=== PATIENT | female | born 1985 | race Caucasian/White ===

== ENCOUNTER 2022-05-29 08:13 | Outpatient (CLI) | payer OTHER, SELFPAY ==
[2022-05-29 14:11] LABS: Alanine Aminotransferase 19 U/L (6-35); Albumin Level 4.4 g/dL (3.5-5.1); Alkaline Phosphatase 66 U/L (38-126); Aspartate Amino Transferase 45 U/L (14-36); Bilirubin,Total 0.4 mg/dL (0.2-1.3)
== END 2022-05-29 08:14 | disposition home or self-care (01) ==
LOC: ANHGOSHLAB 08:16
PROVIDERS: Visit Provider Podiatrist Foot & Ankle Surgery
DX: D35.1 Benign neoplasm of parathyroid gland (principal)
CPT/HCPCS: 36415; 80076

== ENCOUNTER 2022-06-16 08:04 | Outpatient (CLI) | payer OTHER, SELFPAY ==
[2022-06-16 14:18] LABS: Alanine Aminotransferase 17 U/L (6-35); Albumin Level 4.4 g/dL (3.5-5.1); Alkaline Phosphatase 50 U/L (38-126); Aspartate Amino Transferase 46 U/L (14-36); Bilirubin,Total 0.6 mg/dL (0.2-1.3)
== END 2022-06-16 08:05 | disposition home or self-care (01) ==
LOC: ANHGOSHLAB 08:05
PROVIDERS: Visit Provider Podiatrist Foot & Ankle Surgery
DX: B35.1 Tinea unguium (principal)
CPT/HCPCS: 36415; 80076

== ENCOUNTER → 2022-09-09 12:42 | Outpatient (CLI) | payer OTHER, SELFPAY ==
--- NOTE | ~2022-09-09 | CT_ITS ---
EXAMINATION: CT abdomen pelvis w con DATE: 09/09/2022 13:12 INDICATION: Lower abdominal pain TECHNIQUE: Computed tomography (CT) of the abdomen and pelvis was performed with 100 mL Omnipaque-350 intravenous contrast. Automated exposure control and iterative reconstruction technique were employe d. The dose-length product was 605.47 mGy-cm. COMPARISON: None FINDINGS: Lung bases are clear. Cardiomegaly. No pericardial or pleural effusion. Liver, gallbladder, spleen, p ancreas, bilateral adrenal glands and right kidney are normal. 6 mm cyst at the lower pole of the lef t kidney. There is diffuse colonic wall thickening most prominent in the proximal colon consistent wi th colitis. No bowel obstruction. Bladder, uterus and bilateral adnexa are unremarkable. Small amount of likely reactive versus physiologic free fluid in the cul-de-sac. No abscess or free intraperitone al gas. There are a few mildly prominent but still normal-sized likely reactive lymph nodes along the ileocolic chain in the right lower quadrant. No pathologically enlarged abdominal or pelvic lymphade nopathy. The aorta and its major branch vessels including the celiac axis, superior mesenteric and in ferior mesenteric arteries all appear normal in caliber and no evident atherosclerosis or stenosis. B ones are unremarkable. IMPRESSION: 1. Diffuse colitis which could be infectious, inflammatory or less likely ischemic in etiology. 2. Mild cardiomegaly. Reviewed, dictated and finalized at location A. IMPRESSION: 1. Diffuse colitis which could be infectious, inflammatory or less likely ische jonah in etiology. 2. Mild cardiomegaly.
== END ==
PROVIDERS: PCP Family Medicine; Visit Provider Nurse Practitioner Family
DX: K52.89 Other specified noninfective gastroenteritis and colitis (principal); I51.7 Cardiomegaly
CPT/HCPCS: 74177; Q9967

== ENCOUNTER 2022-10-07 15:45 | Outpatient (CLI) | payer OTHER, SELFPAY ==
[2022-10-07 16:08] LABS: Hematocrit 35.5 % (37.0-47.0); Mean Corpuscular HGB Conc 33.8 g/dl (32-36); Mean Corpuscular Hemoglobin 31.4 pg (26-34); Mean Corpuscular Volume 92.9 fl (80-100); Platelet Count Result 205 k/mm3 (150-375); Red Blood Count 3.82 M/mm3 (4.2-5.4); Red Cell Distribution Width 11.8 % (11.5-14.5); White Blood Count 5.7 K/mm3 (4.5-10.0)
[2022-10-07 16:22] LABS: Alanine Aminotransferase 18 U/L (6-35); Albumin Level 4.6 g/dL (3.5-5.1); Alkaline Phosphatase 62 U/L (38-126); Anion Gap 10 mmol/L (8-16); Aspartate Amino Transferase 29 U/L (14-36); Bilirubin,Total 0.3 mg/dL (0.2-1.3); Blood Urea Nitrogen 26 mg/dL (7-17); CRP 0.5 mg/dL (<1.0); Carbon Dioxide 27 mmol/L (22-30); Chloride 101 mmol/L (98-107); Estimated Glomerular Filt Rate > 60; Glucose 87 mg/dL (65-110); Sodium 138 mmol/L (137-145)
[2022-10-07 16:43] LABS: Erythrocyte Sedimentation Rate 13 mm/hr (0-20)
== END 2022-10-07 15:46 | disposition home or self-care (01) ==
LOC: ANHLAB 15:46
PROVIDERS: PCP Family Medicine; Visit Provider Nurse Practitioner Family
DX: K52.9 Noninfective gastroenteritis and colitis, unspecified (principal)
CPT/HCPCS: 36415; 80053; 85027; 85652; 86140

== ENCOUNTER 2022-10-19 06:30 | Day surgery (SDC) | payer OTHER, SELFPAY ==
[2022-10-14 11:29] VITALS: BMI 26.3
[2022-10-14 14:56] VITALS: BMI 25.4
[2022-10-19 08:30] VITALS: BP 113/83; PULSE 83; RESP 20; TEMP 37; O2SAT 100
[2022-10-19] MEDS: LACTATED RINGERS 1,000 ML 150 ML IV CONT (08:45)
--- NOTE | 2022-10-19 08:54 | WPDANESEPPF ---
Anes - Initial Pre Proc Eval Procedure: Operation Date: 10/19/22 10:00 Proposed Procedures p Diagnostic Colonoscopy - Scottie Caballero MD Date/Time: 10/19/22 08:54 Surgeon: Scottie Caballero MD Pre Op Diagnosis: Noninfective Gastroenteritis & Colitis, LLQP, RLQP Patient Data Age: 37 Gender: F Height: 1.73 m Weight: 75.9 kg Last Vital Signs Temp 37.0 C 10/19/22 08:30 Pulse 83 10/19/22 08:30 Resp 20 10/19/22 08:30 BP 113/83 10/19/22 08:30 Pulse Ox 100 10/19/22 08:30 O2 Del Method Room Air 10/19/22 08:30 Allergies Allergy/AdvReac Type Severity Reaction Status Date / Time No Known Allergies Allergy Verified 10/19/22 08:37 Home Medications Medication Instructions Recorded Confirmed Type biotin 1 mg capsule 1 mg PO DAILY 10/07/22 10/19/22 History magnesium citrate 100 mg capsule 100 mg PO DAILY 10/07/22 10/19/22 History multivitamin (Daily Multi-Vitamin 1 tablet PO DAILY 10/07/22 10/19/22 History tablet) vitamin E (dl, acetate) 45 mg (100 45 mg PO DAILY 10/07/22 10/19/22 History unit) capsule Patient hx anesthesia problems: none Family hx anesthesia problems: none Results Review: All pre-operative results and documents have been reviewed as part of the pre-operative evaluation. [facility] Past Medical History Medical History BMI 26.0-26.9,adult Surgical History Surgical History (Updated 10/19/22 @ 08:54 by Ismael Armendariz MD) History of appendectomy Hx of tonsillectomy Family History Family History Father Family history of malignant melanoma Hypertension Mother Family history of malignant melanoma Sibling No problems noted. 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 Informed Consent: The patient's anesthetic plan and its attendant risks and benefits were discussed with the patient/family/POA. Questions were solicited and answers provided to the satisfaction of the patient/family/POA.
--- NOTE | 2022-10-19 09:10 | WPDHPUPDATE1 ---
History and Physical Update Update Date/Time: 10/19/22 09:10 History and Physical has been reviewed, including an updated exam of the patient. There are NO changes in the patient's condition. Risks, benefits, and alternatives have been discussed and questions answered. Patient agrees to proceed with procedure.
[2022-10-19 09:33] VITALS: BP 112/88; PULSE 84; RESP 20; O2SAT 98
[2022-10-19 09:43] VITALS: BP 112/79; PULSE 65; RESP 20; O2SAT 100
--- NOTE | 2022-10-19 09:43 | WPDANESPN ---
Anes - Prog Note Post-Op Date/Time: 10/19/22 09:43 Cardiovascular status: normal Respiratory status: normal Airway patency: baseline Mental status: baseline Post-Op hydration status: normal Vital Signs: Last Vital Signs Temp 37.0 C 10/19/22 08:30 Pulse 83 10/19/22 08:30 Resp 20 10/19/22 08:30 BP 113/83 10/19/22 08:30 Pulse Ox 100 10/19/22 08:30 O2 Del Method Room Air 10/19/22 08:30 Pain Score (VAS): 0/10 Patient Feedback: Patient satisfied with anesthetic care.
[2022-10-19 09:53] VITALS: BP 112/78; PULSE 65; RESP 20; O2SAT 100
== END 2022-10-19 10:20 | disposition home or self-care (01) ==
PROVIDERS: PCP Family Medicine; Visit Provider Internal Medicine Gastroenterology
PROC: 0DJD8ZZ Inspection of Lower Intestinal Tract, Via Natural or Artificial Opening Endoscopic (ICD-10-PCS; CPT 45378; principal; 2022-10-19 10:00)
DX: K52.9 Noninfective gastroenteritis and colitis, unspecified (principal)
CPT/HCPCS: 45378

== ENCOUNTER 2022-11-05 13:50 | Outpatient (CLI) | payer OTHER, SELFPAY ==
[2022-11-10 21:06] LABS: Tissue Transglutaminase IgA Ab <1.0 U/mL (<15.0)
[2022-11-11 21:02] LABS: Tissue Transglutaminase IgG Ab <1.0 U/mL (<15.0)
== END 2022-11-05 13:51 | disposition home or self-care (01) ==
LOC: ANHLAB 13:51
PROVIDERS: PCP Family Medicine; Visit Provider Internal Medicine Gastroenterology
DX: R10.31 Right lower quadrant pain (principal); R10.32 Left lower quadrant pain
CPT/HCPCS: 36415; 86364